=== PATIENT | female | born 1970 | race Hispanic/Latino ===

== ENCOUNTER 2017-03-29 02:38 | Emergency (ER) | payer BC ==
[~2017-03-29] VITALS: Ht 160 cm; Wt 88.9 kg
[~2017-03-29 02:38] MED LIST: CYCLOBENZAPRINE10 MG PO; TRAMADOL HCL50 MG PO
== END 2017-03-29 06:06 | disposition home or self-care (01) ==
LOC: ED 02:38
DX: K59.00 Constipation, unspecified (principal)
CPT/HCPCS: 74000; 80053; 81001; 83690; 84703; 85025; 96361; 96374; 96375; 96376; 99284; J2405; J7030

== ENCOUNTER 2019-08-22 09:58 | Emergency (ER) | payer OTHER ==
[~2019-08-22] VITALS: Ht 160 cm; Wt 89.8 kg
[2019-08-22] MEDS ORDERED: SULFAMETHOXAZO1 EAC1 PO (10:13)
[2019-08-22] MEDS ORDERED: BACTRIM DS TAB1 EACH PO (10:13)
[2019-08-22] MEDS ORDERED: ZOFRAN4 MG PO (12:17)
[2019-08-22] MEDS ORDERED: NORCO 5-325 TA1 EACH PO (12:17)
== END 2019-08-22 12:25 | disposition home or self-care (01) ==
LOC: ED 09:58
DX: M54.9 Dorsalgia, unspecified (principal); F17.200 Nicotine dependence, unspecified, uncomplicated; Z79.899 Other long term (current) drug therapy
CPT/HCPCS: 76705; 76770; 80053; 81001; 84703; 85025; 96361; 96374; 96375; 99284-25; J1885; J2405; J7030

== ENCOUNTER 2020-11-25 10:27 | Emergency (ER) | payer OTHER ==
[~2020-11-25] VITALS: Ht 160 cm; Wt 81.7 kg
[~2020-11-25 10:27] MED LIST changes: +BACTRIM DS TAB1 EACH PO; +NORCO 5-325 TA1 EACH PO; +SULFAMETHOXAZO1 EAC1 PO; +ZOFRAN4 MG PO
== END 2020-11-25 12:50 | disposition home or self-care (01) ==
LOC: ED 10:27
DX: J02.9 Acute pharyngitis, unspecified (principal); F17.200 Nicotine dependence, unspecified, uncomplicated; Z20.822 Contact with and (suspected) exposure to COVID-19
CPT/HCPCS: 87081; 99283; U0003

== ENCOUNTER 2021-01-24 21:57 | Emergency (ER) | payer OTHER ==
[~2021-01-24] VITALS: Ht 160 cm; Wt 83.9 kg
[2021-01-24] MEDS ORDERED: HYDROCODON-ACE1 EA10 PO (22:08)
[2021-01-24] MEDS ORDERED: DOXYCYCLINE MO100 M1 PO (22:08)
== END 2021-01-24 23:18 | disposition home or self-care (01) ==
LOC: ED 21:57
DX: K59.03 Drug induced constipation (principal); T40.2X5A Adverse effect of other opioids, initial encounter; F17.200 Nicotine dependence, unspecified, uncomplicated; Z79.899 Other long term (current) drug therapy
CPT/HCPCS: 99283